=== PATIENT | male | born 1985 ===

== ENCOUNTER 2024-10-12 20:46 | Emergency (ER) | payer OTHER | END 2024-10-12 21:55 | disposition home or self-care (01) | LOC: MW.ED 20:46 | DX: Z02.89 Encounter for other administrative examinations (principal); S00.81XA Abrasion of other part of head, initial encounter; V49.40XA Driver injured in collision with unspecified motor vehicles in traffic accident, initial encounter; Y92.410 Unspecified street and highway as the place of occurrence of the external cause | CPT/HCPCS: 70450; 70450-26; 99282; 99284 ==